=== PATIENT | male | born 1955 | race Caucasian/White ===

== ENCOUNTER 2023-09-30 10:23 | Outpatient (OUT) | payer MEDICARE, OTHER, SELFPAY ==
--- NOTE | 2023-09-30 | XR_ITS ---
The [address] [address] Patient Name: REGINA CASTILLO MRN: [id number] date: 1955 Sex: M Assigned Patient Location: [facility] Current Patient Location: [facility] Accession/Order Number: [id number] Exam Date: 09/30/2023 10:42 Report Date: 09/30/2023 20:28 At the request of: EMILY TAVARES Procedure: XR wrist LT min 3V EXAM: XR wrist LT min 3V HISTORY: Left wrist pain COMPARISON: None. TECHNIQUE: 3 views left wrist FINDINGS: Severe degenerative change at the first carpal metacarpal joint. Mild degenerative changes of the radiocarpal and the carpometacarpal joints. No acute fracture or aggressive osseous abnormality. XR/XR wrist LT min 3V IMPRESSION: Degenerative changes of the left wrist as above. Electronically authenticated by: KATHY MCDONOUGH Date: 09/30/2023 20:28
== END 2023-09-30 10:24 | disposition home or self-care (01) ==
LOC: RAD 10:29
PROVIDERS: PCP Family Medicine; Visit Provider Family Medicine
DX: M25.532 Pain in left wrist (principal)
CPT/HCPCS: 73110

== ENCOUNTER 2023-11-03 07:45 | Outpatient (OUT) | payer MEDICARE, OTHER, SELFPAY ==
--- NOTE | 2023-11-03 07:49 | US_ITS ---
[place] [id number] Patient Name: REGINA CASTILLO MRN: [id number] date: 1955 Sex: M Assigned Patient Location: [place] Current Patient Location: Accession/Order Number: [id number] Exam Date: 11/03/2023 07:55 Report Date: 11/04/2023 17:09 At the request of: NON-STAFF PHYSICIAN Procedure: US thyroid STUDY: US thyroid, [id number] HISTORY: Thyroid Nodule E04.1 TECHNIQUE: Multiple 2 dimensional grayscale and color doppler images through the thyroid. COMPARISONS: None FINDINGS: The thyroid is homogeneous in echotexture and demonstrates normal color Doppler flow. The right lobe measures 4.5 x 1.9 x 2.2 cm for a volume of 8.8 cc. The left lobe measures 4.5 x 1.5 x 2.0 cm for a volume of 6.6 cc. The isthmus measures 0.2 cm. Nodule 1 Size: 2 x 1.4 x 1.8 cm Location: Mid right thyroid lobe Composition: Solid or almost completely solid-2 Echogenicity: Hypoechoic-2 Shape: Wider than tall-0 Margin: Smooth-0 Echogenic foci: None or large comet tail artifacts-0 TI-RADS: 4 Nodule 2 Size: 1.4 x 1.1 x 0.8 cm Location: Mid left thyroid lobe Composition: Cystic or almost completely cystic-0 Echogenicity: Anechoic-0 Shape: Wider than tall-0 Margin: Smooth-0 Echogenic foci: None or large comet tail artifacts-0 TI-RADS: 1 Nodule 3 Size: 1.5 x 1.4 x 1 cm Location: Left thyroid lobe Composition: Cystic or almost completely cystic-0 Echogenicity: Anechoic-0 Shape: Wider than tall-0 Margin: Smooth-0 Echogenic foci: None or large comet tail artifacts-0 TI-RADS: 1 Nodule 4 Size: 1.5 x 1.1 x 0.7 cm Location: Right superior thyroid lobe Composition: Solid or almost completely solid-2 Echogenicity: Hyperechoic or isoechoic-1 Shape: Wider than tall-0 Margin: Owb-savktms-8 Echogenic foci: None or large comet tail artifacts-0 TI-RADS: 3 There are 2 additional subcentimeter thyroid nodules which do not require additional evaluation or follow-up based on characteristics. US/US thyroid IMPRESSION: 1. Right mid TI-RADS 4 nodule measuring up to 2 cm, recommend FNA for further evaluation. 2. Right superior TI-RADS 3 nodule measuring up to 1.5 cm. Recommend follow-up ultrasound in one year. 3. The remaining nodules are no additional evaluation on follow-up exams. Electronically authenticated by: ROSENDO CAGE Date: 11/04/2023 17:09
== END 2023-11-03 07:46 | disposition home or self-care (01) ==
LOC: US 07:45
PROVIDERS: PCP Family Medicine
DX: E04.1 Nontoxic single thyroid nodule (principal)
CPT/HCPCS: 76536

== ENCOUNTER 2023-11-09 10:52 | Outpatient (OUT) | payer MEDICARE, OTHER, SELFPAY ==
[2023-11-09 12:44] LABS: Free T3 2.48 pg/mL (2.18-3.98); Thyroid Stimulating Hormone 0.478 uIU/mL (0.358-3.740)
[2023-11-09 12:48] LABS: Free T4 0.76 ng/dL (0.76-1.46)
== END 2023-11-09 10:53 | disposition home or self-care (01) ==
LOC: LAB 10:54
PROVIDERS: PCP Family Medicine; Visit Provider Otolaryngology
DX: E04.2 Nontoxic multinodular goiter (principal)
CPT/HCPCS: 36415; 84436; 84439; 84443; 84479; 84481

== ENCOUNTER 2024-03-03 09:47 | Outpatient (OUT) | payer MEDICARE, OTHER, SELFPAY ==
--- NOTE | 2024-03-03 09:51 | US_ITS ---
[address] [address] Patient Name: REGINA CASTILLO MRN: [id number] date: 1955 Sex: M Assigned Patient Location: US Current Patient Location: US Accession/Order Number: [id number] Exam Date: 03/03/2024 09:52 Report Date: 03/03/2024 14:43 At the request of: ADORE MCNALLY Procedure: US thyroid EXAMINATION: US thyroid HISTORY: Nontoxic Multinodular Goiter E04.2 COMPARISON: Ultrasound thyroid 11/03/2023 FINDINGS: RIGHT LOBE: Grossly stable 16 mm TR 3 nodule, 21 mm TR 4 nodule, 10 mm TR 4 nodule, and 4 mm TR 4 nodule. Heterogeneous echotexture throughout. Lobe size: 4.9 x 2.2 x 1.9 cm LEFT LOBE: Stable 14 mm cyst. Heterogeneous echotexture throughout. Lobe size: 4.4 x 2.0 x 1.8 cm ISTHMUS: Mildly thickened and heterogeneous echotexture. Thickness: 5 mm US/US thyroid IMPRESSION: 1. Heterogeneous thyroid gland containing multiple TR 4 nodules. Fine-needle aspiration of the 21 mm TR 4 nodule within right lobe should be considered. TR4 (moderately suspicious): If > 1.0 cm, follow-up ultrasound in 1, 2, 3, and 5 years. If > 1.5 cm, fine needle aspiration (FNA). TR3 (mildly suspicious): > 1.5 cm, follow-up ultrasound in 1, 3, and 5 years. > 2.5 cm, fine needle aspiration. Electronically authenticated by: COURTNEY JUAREZ Date: 03/03/2024 14:43
== END 2024-03-03 09:48 | disposition home or self-care (01) ==
LOC: US 09:47
PROVIDERS: PCP Family Medicine; Visit Provider Otolaryngology
DX: E04.2 Nontoxic multinodular goiter (principal)
CPT/HCPCS: 76536

== ENCOUNTER 2024-04-18 07:45 | Day surgery (SDC) | payer MEDICARE, OTHER, SELFPAY ==
--- OUTSIDE RECORDS SUMMARY | 2024-04-18 07:48 | XMS_ITS ---
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 Name Role Phone DR EMILY TAVARES Consulting Unavailable DR EMILY TAVARES Attending Unavailable DR EMILY TAVARES Admitting Unavailable DR EMILY TAVARES Primary Care Unavailable Encounters Encounter Date Encounter Type Care Provider Facility Start: 12-24-2022 End: 12-25-[address] EMILY TAVARES Facility: Payers Date Payer Category Payer Unknown [id number] 1955 Unknown [id number] Problems Problem Classification Problem Date Documented Da te Episodic/Chronic Disorders of lipid metabolism (1 source) Hyperlipidemia, unspecified; Translations: [HYPERLIPIDEMIA UNSPECIFIED] Onset: 12-27-2022 Chronic Essential hypertension (4 sources) Essential (primary) hypertension; Translations: [ESSENTIAL PRIMARY HYPERTENSION] Onset: 12-24-2022 Chronic Other aftercare (1 source) Other usp (current) drug therapy; Translations: [OTH CARE HOME CURRENT DRUG THERAPY] Onset: 12-27-2022 Episodic Other nutritional; endocrine; and metabolic disorders (1 source) Morbid (severe) obesity due to excess calories; Translations: [MORBID SEVERE OBES D/T EXCESS MILVIA] Onset: 12-27-2022 Chronic Results Test Name Value Interpretation Reference Range Facil ity CBC AUTO DIFFon 12-24-2022 BASO # 0.1 103/ul Normal 0.0-0.1 [facility] Comment on above: Performed By: #### C BC #### [facility] [address] [address] [address] Anam Petersen Basophils/100 WBC (Bld) 0.9 % Normal 0.2-2.0 [facility] Comment on above: Performed By: #### C BC #### [facility] [address] [place] [address] Dr. Anam Petersen EO # 0.1 103/ul Normal 0.0-0.7 [facility] Comment on above: Performed By: #### C BC #### [facility] [address] [place] [address] Dr. Anam Petersen Eosinophils/100 WBC (Bld) 2.1 % Normal 0.9-7.0 [facility] Comment on above: Performed By: #### C BC #### [facility] [address] [place] [address] Dr. Anam Petersen Erythrocyte distribution width (RBC) [Ratio] 13.5 % Normal 11.0-15.0 [facility] Comment on above: Performed By: #### C BC #### [facility] [address] [place] [address] Dr. Anam Petersen Hematocrit (Bld) [Volume fraction] 47.3 % Normal 42.0-54.0 [facility] Comment on above: Performed By: #### C BC #### [facility] [address] [place] [address] Dr. Anam Petersen Hemoglobin (Bld) [Mass/Vol] 15.3 g/dL Normal 14.0-18.0 [facility] Comment on above: Performed By: #### C BC #### [facility] [address] [place] [address] Dr. Anam Petersen IG # 0.02 10e3/ul Normal 0.00-0.03 [facility] Comment on above: Performed By: #### C BC #### [facility] [address] [place] [address] Dr. Anam Petersen IG % 0.3 % Normal 0.0-0.5 [facility] Comment on above: Performed By: #### C BC #### [facility] [address] [place] [address] Dr. Anam Petersen LYMPH # 1.2 103/ul Normal 1.2-3.8 [facility] Comment on above: Performed By: #### C BC #### [facility] [address] [place] [address] Dr. Anam Petersen Lymphocytes/100 WBC (Bld) 20.9 % Normal 20.5-60.0 [facility] Comment on above: Performed By: #### C BC #### [facility] [address] [place] [address] Dr. Anam Petersen MANUAL DIFF REQ NO Normal [facility] Comment on above: Performed By: #### C BC #### [facility] [address] [place] [address] Dr. Anam Petersen MCH (RBC) [Entitic mass] 30.8 pg Normal 25.9-34.0 [facility] Comment on above: Performed By: #### C BC #### [facility] [address] [place] [address] Dr. Anam Petersen MCHC (RBC) [Mass/Vol] 32.3 g/dL Normal 29.9-35.2 [facility] Comment on above: Performed By: #### C BC #### [facility] [address] [place] [address] Dr. Anam Petersen MCV (RBC) [Entitic vol] 95.2 fL Critically high 80.0-94.0 [facility] Comment on above: Performed By: #### C BC #### [facility] [address] [place] [address] Dr. Anam Petesren MONO # 0.4 103/ul Normal 0.3-0.8 [facility] Comment on above: Performed By: #### C BC #### [facility] [address] [place] [address] Dr. Anam Petersen Monocytes/100 WBC (Bld) 6.3 % Normal 1.7-12.0 [facility] Comment on above: Performed By: #### C BC #### [facility] [address] [place] [address] Dr. Anam Petersen NEUT # 4.1 103/ul Normal 1.4-6.5 [facility] Comment on above: Performed By: #### C BC #### [facility] [address] [place] [address] Dr. Anam Petersen Neutrophils/100 WBC (Bld) 69.5 % Normal 43.0-75.0 [facility] Comment on above: Performed By: #### C BC #### [facility] [address] [place] [address] Dr. Anam Petersen Platelet mean volume (Bld) [Entitic vol] 9.4 fL Critically low 9.5-13.5 [facility] Comment on above: Performed By: #### C BC #### [facility] [address] [place] [address] Dr. Anam Petersen PLT 173 103/ul Normal 150-450 [facility] Comment on above: Performed By: #### C BC #### [facility] [address] [place] [address] Dr. Anam Petersen RBC 4.97 106/ul Normal 4.70-6.10 [facility] Comment on above: Performed By: #### C BC #### [facility] [address] [place] [address] Dr. Anam Petersen WBC 5.9 103/ul Normal 4.0-11.0 [facility] Comment on above: Performed By: #### C BC #### [facility] [address] [place] [address] Dr. Anam Petersen GLYCOHEMOGLOBIN A1Con 2022 ADA RECOMMENDATION SEE BELOW Normal [facility] Comment on above: Result Comment: ADA RECOMMENDED LIMIT 4.0 - 6.0 ADA THERAPEUTIC TARGET < 7.0 ACTION SUGGESTED > 7.0 Performed By: #### A 1C #### [facility] [address] [place] [address] Dr. Anam Petersen Glucose [Mass/Vol] 120 mg/dL Normal [facility] Comment on above: Performed By: #### A 1C #### [facility] [address] [place] [address] Dr. Anam Petersen HbA1c (Bld) [Mass fraction] 5.8 % Normal 4.5-6.2 [facility] Comment on above: Performed By: #### A 1C #### [facility] [address] [place] [address] Dr. Anam Petersen LIPID PROFILEon 12-24-2022 CHOL-HDL RATIO NORM SEE BELOW Normal [facility] Comment on above: Result Comment: 3.3 - 4.4 LOW RISK 4.4 - 7.1 AVERAGE RISK 7.1 - 11.0 MODERATE RISK >11.0 HIGH RISK Performed By: #### L IPID, LIVER, TSH, BMP #### [facility] [address] [address] [address] Anam Petersen Cholesterol [Mass/Vol] 183 mg/dL Normal <=200 [facility] Comment on above: Performed By: #### L IPID, LIVER, TSH, BMP #### [facility] [address] [address] [address] Anam Petersen Cholesterol in HDL [Mass/Vol] 44 mg/dL Normal 40-60 [facility] Comment on above: Performed By: #### L IPID, LIVER, TSH, BMP #### [facility] [address] [address] [address] Anam Petersen Cholesterol in LDL [Mass/Vol] 103.8 mg/dL Normal [facility] Comment on above: Performed By: #### L IPID, LIVER, TSH, BMP #### [facility] [address] [address] [address] Anam Petersen Cholesterol.total/Cho lesterol in HDL [Mass ratio] 4.2 {ratio} Normal [facility] Comment on above: Performed By: #### L IPID, LIVER, TSH, BMP #### [facility] [address] [address] [address] Anam Petersen HDL NORMAL > or = 60 mg/dl - LOW CARDIOVASCULAR RISK <40 mg/dl - HIGH CARDIOVASCULAR RISK Normal [facility] Comment on above: Performed By: #### L IPID, LIVER, TSH, BMP #### [facility] [address] [address] [address] Anam Petersen LDL CALC NORMAL SEE BELOW Normal [facility] Comment on above: Result Comment: <100 mg/dl OPTIMAL 100 - 129 mg/dl NEAR OR ABOVE OPTIMAL 130 - 159 mg/dl BORDERLINE HIGH 160 - 189 mg/dl HIGH >190 mg/dl VERY HIGH Performed By: #### L IPID, LIVER, TSH, BMP #### [facility] [address] [address] [address] Anam Petersen Triglyceride [Mass/Vol] 176 mg/dL Critically high <=150 [facility] Comment on above: Performed By: #### L IPID, LIVER, TSH, BMP #### [facility] [address] [address] [address] Anam Petersen VLDL CALC 35.2 mg/dL Normal [facility] Comment on above: Performed By: #### L IPID, LIVER, TSH, BMP #### [facility] [address] [address] [address] Anam Petersen LIVER PROFILEon 12-24-2022 Albumin [Mass/Vol] 4.1 g/dL Normal 3.4-5.0 [facility] Comment on above: Performed By: #### L IPID, LIVER, TSH, BMP #### [facility] [address] [address] [address] Anam Petersen Albumin/Globulin [Mass ratio] 1.1 {ratio} Normal [facility] Comment on above: Performed By: #### L IPID, LIVER, TSH, BMP #### [facility] [address] [address] [address] Anam Petersen ALP [Catalytic activity/Vol] 83 U/L Normal 46-116 [facility] Comment on above: Performed By: #### L IPID, LIVER, TSH, BMP #### [facility] [address] [address] [address] Anam Petersen ALT [Catalytic activity/Vol] 24 U/L Normal 16-63 [facility] Comment on above: Performed By: #### L IPID, LIVER, TSH, BMP #### [facility] [address] [address] [address] Anam Petersen AST [Catalytic activity/Vol] 23 U/L Normal 15-37 [facility] Comment on above: Performed By: #### L IPID, LIVER, TSH, BMP #### [facility] [address] [address] [address] Anam Petersen BILI, CONJUGATED 0.1 mg/dL Normal 0.0-0.2 [facility] Comment on above: Performed By: #### L IPID, LIVER, TSH, BMP #### [facility] [address] [place] [address] Dr. Anam Petersen Bilirubin [Mass/Vol] 0.6 mg/dL Normal 0.2-1.0 [facility] Comment on above: Performed By: #### L IPID, LIVER, TSH, BMP #### [facility] [address] [place] [address] Dr. Anam Petersen Globulin (S) [Mass/Vol] 3.9 g/dL Normal [facility] Comment on above: Performed By: #### L IPID, LIVER, TSH, BMP #### [facility] [address] [place] [address] Dr. Anam Petersen Protein [Mass/Vol] 8.0 g/dL Normal 6.4-8.2 [facility] Comment on above: Performed By: #### L IPID, LIVER, TSH, BMP #### [facility] [address] [place] [address] Dr. Anam Petersen PROF CHEM 8 (BAS METB)on Anion gap [Moles/Vol] 12.0 mmol/L Normal [facility] Comment on above: Performed By: #### L IPID, LIVER, TSH, BMP #### [facility] [address] [place] [address] Dr. Anam Petersen Calcium [Mass/Vol] 9.4 mg/dL Normal 8.5-10.1 [facility] Comment on above: Performed By: #### L IPID, LIVER, TSH, BMP #### [facility] [address] [place] [address] Dr. Anam Petersen Chloride [Moles/Vol] 100 mmol/L Normal 98-107 [facility] Comment on above: Performed By: #### L IPID, LIVER, TSH, BMP #### [facility] [address] [place] [address] Dr. Anam Petersen CO2 [Moles/Vol] 30.7 mmol/L Normal 21.0-32.0 [facility] Comment on above: Performed By: #### L IPID, LIVER, TSH, BMP #### [facility] [address] [address] [address] Anam Petersen Creatinine [Mass/Vol] 0.71 mg/dL Normal 0.70-1.30 [facility] Comment on above: Performed By: #### L IPID, LIVER, TSH, BMP #### [facility] [address] [address] [address] Anam Petersen EGFR-AF ESTONIAN >60 Normal >=[address] [facility] Comment on above: Performed By: #### L IPID, LIVER, TSH, BMP #### [facility] [address] [address] [address] Anam Petersen EGFR-NON AF ESTONIAN >60 Normal >=60 [facility] Comment on above: Performed By: #### L IPID, LIVER, TSH, BMP #### [facility] [address] [address] [address] Anam Petersen Glucose [Mass/Vol] 99 mg/dL Normal 74-106 [facility] Comment on above: Performed By: #### L IPID, LIVER, TSH, BMP #### [facility] [address] [address] [address] Anam Petersen Potassium [Moles/Vol] 4.7 mmol/L Normal 3.5-5.1 [facility] Comment on above: Performed By: #### L IPID, LIVER, TSH, BMP #### [facility] [address] [address] [address] Anam Petersen Sodium [Moles/Vol] 138 mmol/L Normal 136-145 [facility] Comment on above: Performed By: #### L IPID, LIVER, TSH, BMP #### [facility] [address] [address] [address] Anam Petersen Urea nitrogen [Mass/Vol] 13.0 mg/dL Normal 7.0-18.0 [facility] Comment on above: Performed By: #### L IPID, LIVER, TSH, BMP #### [facility] [address], [place] [address] Dr. Anam Petersen Urea nitrogen/Creatinine [Mass ratio] 18.3 mg/mg Normal [facility] Comment on above: Performed By: #### L IPID, LIVER, TSH, BMP #### [facility] [address] [place], [place] [address] Dr. Anam Petersen TSHon 12-24-2022 TSH 0.783 uIU/mL Normal 0.358-3.740 [facility] Comment on above: Performed By: #### L IPID, LIVER, TSH, BMP #### [facility] [address] [place], [place] [address] Dr. Anam Petersen Summary Purpose Family History No Family History Records Found Advance Directives No Advanced Directives Records Found Additional Source Comments (unrecognized sect ion and content) No Status Records Found INFORMATION SOURCE (unrecogn ized section and content) DATE CREATED AUTHOR 12/27/2022 [facility] FOR RECORDS PERTAINING TO PATIENTS WHO ARE OR HAVE BEEN ENROLLED IN A CHEMICAL DEPENDENCY/SUBSTANCEABUSE PROGRAM, SOME INFORMATION MAY BE OMITTED. This clinical summary was aggregated from multiple sources. Caution should be exercised in using it in the provision of clinical care. This summary normalizes information from multiple sources, and as a consequence, information in this document may materially change the coding, format and clinical context of patient data. In addition, data may be omitted in some cases. CLINICAL DECISIONS SHOULD BE BASED ON THE PRIMARY CLINICAL RECORDS. [employer] provides no warranty or guarantee of the accuracy or completeness of information in this document.
--- NOTE | 2024-04-18 07:50 | US_ITS ---
[address] [address] Patient Name: REGINA CASTILLO MRN: [id number] date: 1955 Sex: M Assigned Patient Location: US Current Patient Location: Accession/Order Number: [id number] Exam Date: 04/18/2024 07:55 Report Date: 04/18/2024 10:24 At the request of: ADORE MCNALLY Procedure: US biopsy FNA add lesion EXAMINATION: US biopsy thyroid, US biopsy FNA add lesion HISTORY: Thyroid Nodule COMPARISON: Ultrasound thyroid 03/03/2024 TECHNIQUE: After obtaining informed consent, ultrasound-guided fine needle aspiration was performed in the usual sterile manner. FINDINGS: IMAGING: Ultrasound. BIOPSY NEEDLE: 25-gauge; 3 separate passes within both lesions. LOCATION: Right lobe superior pole 1.5 cm isoechoic heterogeneous nodule. Right lobe inferior pole 2.1 cm heterogeneous avascular nodule. SPECIMEN TYPE: Cellular tissue. LOCAL ANESTHETIC: Buffered Xylocaine. COMPLICATIONS: None. LABORATORY: Prepared slide smears and washings for cell block evaluation. OTHER: Negative. PATHOLOGY: Pending. An addendum will be added when results are available. US/US biopsy FNA add lesion IMPRESSION: 1. Uneventful ultrasound guided fine needle aspiration (FNA). 2. Pathology results are pending. Electronically authenticated by: COURTNEY JUAREZ Date: 04/18/2024 10:24
--- NOTE | 2024-04-18 07:50 | US_ITS ---
[address] [address] Patient Name: REGINA CASTILLO MRN: [id number] date: 1955 Sex: M Assigned Patient Location: US Current Patient Location: Accession/Order Number: [id number] Exam Date: 04/18/2024 07:55 Report Date: 04/18/2024 10:24 At the request of: ADORE MCNALLY Procedure: US biopsy thyroid EXAMINATION: US biopsy thyroid, US biopsy FNA add lesion HISTORY: Thyroid Nodule COMPARISON: Ultrasound thyroid 03/03/2024 TECHNIQUE: After obtaining informed consent, ultrasound-guided fine needle aspiration was performed in the usual sterile manner. FINDINGS: IMAGING: Ultrasound. BIOPSY NEEDLE: 25-gauge; 3 separate passes within both lesions. LOCATION: Right lobe superior pole 1.5 cm isoechoic heterogeneous nodule. Right lobe inferior pole 2.1 cm heterogeneous avascular nodule. SPECIMEN TYPE: Cellular tissue. LOCAL ANESTHETIC: Buffered Xylocaine. COMPLICATIONS: None. LABORATORY: Prepared slide smears and washings for cell block evaluation. OTHER: Negative. PATHOLOGY: Pending. An addendum will be added when results are available. US/US biopsy thyroid IMPRESSION: 1. Uneventful ultrasound guided fine needle aspiration (FNA). 2. Pathology results are pending. Electronically authenticated by: COURTNEY JUAREZ Date: 04/18/2024 10:24
[2024-04-18 08:00] VITALS: BP 156/87; PULSE 74; O2SAT 95
[2024-04-18] MEDS: LIDOCAINE HCL 10 ML, SODIUM BICARBONATE 1 MEQ INJ (08:35)
--- NOTE | 2024-04-18 09:30 | SUR.PREOP ---
03/21/24 Pt instructed on procedure, date, time, and prep.
== END 2024-04-18 09:00 | disposition home or self-care (01) ==
LOC: US 07:46
PROVIDERS: Radiology Diagnostic Radiology; PCP Family Medicine; Visit Provider Otolaryngology
DX: E04.2 Nontoxic multinodular goiter (principal)
CPT/HCPCS: 10005; 10006; 88173